=== PATIENT | male | born 1940 | race Caucasian/White ===

== ENCOUNTER 2016-06-17 11:07 | Emergency (ER) | payer MEDICARE, OTHER ==
[~2016-06-17] VITALS: Ht 177.8 cm; Wt 77.5 kg
[~2016-06-17 11:07] MED LIST: NO CURRENT MEDS
[2016-06-17 11:21] VITALS: Ht 177.8 cm; Wt 77.5 kg
[2016-06-17 13:11] VITALS: BP 138/68; PULSE 71; RESP 18
--- NOTE | 2016-06-17 15:13 | ERD ---
ER Documentation Chief Complaint Date/Time DATE: 06/17/16 TIME: 15:11 Chief Complaint TONGUE PAIN HPI This patient is a 75-year-old male with no significant medical history to the emergency department for irritation of the tip of his tongue after eating significant amounts of garlic and onions. Patient states he has had these symptoms in the past and they self resolved. Symptoms have been present for 5 days. Symptoms are improving. The patient is taken no medications for relief of symptoms. Patient denies fevers, chills, dysphasia, nausea, vomiting, diarrhea, or other symptoms at this time. ROS All systems reviewed and are negative except as per history of present illness. Medications Home Meds Reported Medications [No Current Meds] No Conflict Check 11/02/09 Allergies Allergies: Coded Allergies: No Known Drug Allergies (Verified Allergy, Mild, 11/02/09) PMhx/Soc History of Surgery: Yes (hernia) Anesthesia Reaction: No Hx Neurological Disorder: No Hx Respiratory Disorders: No Hx Cardiac Disorders: No Hx Psychiatric Problems: No Hx Miscellaneous Medical Probl: No Hx Alcohol Use: Yes (BEER/VODKA ONCE IN A WHILE ON WKNDS) Hx Substance Use: No Hx Tobacco Use: No Smoking Status: Never smoker FmHx Noncontributory for chief complaint Physical Exam Vitals Vital Signs Date Time Temp Pulse Resp B/P Pulse Ox O2 Delivery O2 Flow Rate FiO2 06/17/16 13:11 71 18 138/68 99 Room Air 06/17/16 11:21 97.1 71 18 142/78 99 Physical Exam Const: The patient is resting comfortably in no acute distress. Head: Atraumatic Eyes: Normal Conjunctiva ENT: Normal External Ears, Nose and Mouth. Examination of the tongue reveals some enlarged papillae of the tongue. There is no significant erythema or edema. The airway is clear. Neck: Full range of motion..~ No meningismus. Resp: Clear to auscultation bilaterally Cardio: Regular rate and rhythm, no murmurs Abd: Soft, non tender, non distended. Normal bowel sounds Skin: No petechiae or rashes Back: No midline or flank tenderness Ext: No cyanosis, or edema Neur: Awake and alert Psych: Normal Mood and Affect Procedures/MDM 75-year-old male presents secondary to complaints of irritation to the tip of his tongue. On physical examination there is some enlarged papillae to the tip of the tongue. I low suspicion for cellulitis, edema, or other emergent conditions. The patient agrees with and understands the discharge plan and diagnosis. All questions and concerns of been addressed. Patient is to follow- up with his primary care physician. Strict ER return precautions were given. Departure Diagnosis: Primary Impression: Tongue abnormality Condition: Fair Patient Instructions: When Your Child Has Mouth Sores Referrals: [facility] YOU HAVE RECEIVED A MEDICAL SCREENING EXAM AND THE RESULTS INDICATE THAT YOU DO NOT HAVE A CONDITION THAT REQUIRES URGENT TREATMENT IN THE EMERGENCY DEPARTMENT. FURTHER EVALUATION AND TREATMENT OF YOUR CONDITION CAN WAIT UNTIL YOU ARE SEEN IN YOUR DOCTORS OFFICE WITHIN THE NEXT 1-2 DAYS. IT IS YOUR RESPONSIBILITY TO MAKE AN APPOINTMENT FOR FOLOW-UP CARE. IF YOU HAVE A PRIMARY DOCTOR --you should call your primary doctor and schedule an appointment IF YOU DO NOT HAVE A PRIMARY DOCTOR YOU CAN CALL OUR PHYSICIAN REFERRAL HOTLINE AT IF YOU CAN NOT AFFORD TO SEE A PHYSICIAN YOU CAN CHOSE FROM THE FOLLOWING [facility] [address] [facility] [address] [facility] [facility] [address] [facility] [address] [facility] [address] [facility] [facility]. [address] Additional Instructions: Follow-up with your primary care physician within 1 week. Return to the emergency department immediately should you have any new or worsening symptoms, uncontrolled fevers, or other unexplained symptoms. Take all medications as directed. RAMIRO BISHOP PA-C Jun 17, 2016 15:13
== END 2016-06-17 13:11 | disposition home or self-care (01) ==
LOC: FTE 11:07
DX: K13.79 Other lesions of oral mucosa (principal)
CPT/HCPCS: 99282